=== PATIENT | male | born 1955 | race Caucasian/White ===

== ENCOUNTER 2018-01-02 16:40 | Outpatient (CLI) | payer BC ==
[2018-01-02 17:30] LABS: #Basophils 0.1 thou/uL (0.0-0.2); #Eosinphils 0.3 thou/uL (0.0-0.7); #Lymphocytes 1.1 thou/uL (1.20-3.40); #Monocytes 0.7 thou/uL (0.11-0.59); %Basophils 0.9 % (0.0-1.0); %Eosinophils 3.8 % (0.0-10.0); %Lymphocytes 13.7 % (21.0-51.0); %Monocytes 8.6 % (0.0-10.0); Hemoglobin 14.3 g/dL (14.0-18.0); Mean Corpuscular HGB CONC 33.7 g/dL (32.0-36.0); Mean Corpuscular Hemoglobin 29.1 pg (27.0-31.0); Mean Corpuscular Volume 86.2 fl (80.0-94.0); Mean Platelet Volume 8.7 fL (7.4-10.4); Platelet Count 198 thou/uL (130-400); RBC Distribution Width 11.5 % (11.5-14.5); Red Blood Cell (RBC) Count 4.92 mill/uL (4.70-6.10); White Blood Cell (WBC) Count 8.2 thou/uL (4.8-10.8)
[2018-01-02 17:45] LABS: ALT (SGPT) 20 U/L (8-55); AST (SGOT) 20 U/L (5-34); Albumin 4.1 g/dL (3.4-4.8); Alkaline Phosphatase 87 U/L (40-150); Anion Gap 14 mmol/L (10-20); BUN (Urea Nitrogen) 17 mg/dL (8.4-25.7); Bilirubin, Total 0.3 mg/dL (0.2-1.2); Calc. Creatinine Clearance 0 mL/min (70-130); Calcium 9.4 mg/dL (7.8-10.44); Carbon Dioxide 28 mmol/L (23-31); Chloride 103 mmol/L (98-107); Estimated GFR-MDRD 68; Glucose 94 mg/dL (80-115); Protein, Total 7.1 g/dL (5.8-8.1); Sodium 141 mmol/L (136-145)
[2018-01-02 17:48] LABS: CKMB 1.3 ng/mL (0-6.6); Troponin I Less than 0.010 ng/mL (< 0.028)
== END 2018-01-02 16:41 | disposition home or self-care (01) ==
LOC: NAV LAB 16:40
PROVIDERS: ATTEND Family Medicine
DX: I49.9 Cardiac arrhythmia, unspecified (principal)
CPT/HCPCS: 80053; 82553; 83880; 84443; 84484; 85025

== ENCOUNTER 2020-11-12 14:05 | Outpatient (CLI) | payer MEDICARE ==
--- NOTE | 2020-11-12 15:16 | RAD ---
PA CHEST AND BILATERAL RIBS SIX VIEWS: 11/12/20 HISTORY: Fall with rib pain. Heart size is within normal limits. There are atherosclerotic changes of the aorta. The lungs are missy ar of any infiltrates. No pneumothorax. On the right side, no rib fractures are identified. There are two posterior left rib fractures involv ing the left 10th and 11th ribs. Margins of these appear slightly corticated. I am not entirely certa in that these are not older nonunion fractures rather than acute injury. Clinical correlation as to t he exact area of patient's pain. 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 I would favor that these are related to older nonunion fracture rather than an acute injury . Clinical correlation as to area of patient's pain. POS: [facility]
== END 2020-11-12 14:06 | disposition home or self-care (01) ==
LOC: NAV RAD 14:05
PROVIDERS: ATTEND Family Medicine
DX: M54.6 Pain in thoracic spine (principal); R06.02 Shortness of breath; W19.XXXA Unspecified fall, initial encounter; S22.42XK Multiple fractures of ribs, left side, subsequent encounter for fracture with nonunion
CPT/HCPCS: 71111